=== PATIENT | male | born 2000 | race Caucasian/White ===

== ENCOUNTER 2019-01-08 19:43 | Emergency (ER) | payer MEDICAID ==
[~2019-01-08] VITALS: Ht 175.3 cm; Wt 102.1 kg
[2019-01-08 20:00] VITALS: BP 126/72
[2019-01-08 21:07] LABS: BASOPHILS % (AUTO) 0.3 % (0.0-2.0); EOSINOPHILS % (AUTO) 0.4 % (0.0-4.0); HEMATOCRIT 44.3 % (36-52); LYMPHOCYTES # (AUTO) 1.6 K/uL (2.0-11.5); LYMPHOCYTES % (AUTO) 19.1 % (20.5-51.1); MEAN CORPUSCULAR HEMOGLOBIN 29 pg (27-31); MEAN CORPUSCULAR HGB CONC 34 g/dL (33-37); MEAN CORPUSCULAR VOLUME 86.8 fL (80-94); MONOCYTES # (AUTO) 0.5 K/uL (0.8-1.0); MONOCYTES % (AUTO) 5.9 % (1.7-9.3); NEUTROPHILS # (AUTO) 6.2 K/uL (1.8-7.7); NEUTROPHILS % (AUTO) 74.3 % (42.2-75.2); PLATELET COUNT (AUTO) 257 K/uL (140-450); RED CELL DISTRIBUTION WIDTH 12.8 % (11.6-13.7); WHITE BLOOD COUNT (AUTO) 8.4 K/uL (4.5-11.0)
[2019-01-08 21:25] LABS: ANION GAP 10.3 (8-16); CARBON DIOXIDE 30.4 mmol/L (21-32); CREATININE 0.9 mg/dL (0.7-1.3); POTASSIUM 3.7 mmol/L (3.5-5.1)
[2019-01-08 22:32] VITALS: BP 127/59
== END 2019-01-08 22:32 | disposition home or self-care (01) ==
LOC: MED 19:43
DX: F41.1 Generalized anxiety disorder (principal)
CPT/HCPCS: 36415; 71045; 80048; 85025; 93005; 99284; Q0092

== ENCOUNTER 2021-12-09 22:29 | Emergency (ER) | payer MEDICAID, OTHER ==
[~2021-12-09] VITALS: Ht 175.3 cm; Wt 113.4 kg
[2021-12-09 22:33] VITALS: BP 116/88
--- NOTE | 2021-12-09 22:37 | NUR ---
PT AMBULATED TO THE BATHROOM FOR URINE COLLECTION
--- NOTE | 2021-12-09 22:39 | NUR ---
PT TO LOBBY
[2021-12-09] MEDS ORDERED: ALBUTEROL 0.083% 2.5 MG/3 ML NEBU INH ONE (23:40)
--- NOTE | 2021-12-09 23:50 | NUR ---
21 Y/O MALE BIBS FROM HOME, C/O WEAKNESS SINCE SUNDAY, N/V TODAY. DENIES MEDICATION. UNLABORED BREATHING, AMBULATORY, A/OX4. SKIN IS PINK/WARM/DRY. DENIES COUGH, FEVER, CP, OR DIARRHEA. PMH: DENIES NKA
[2021-12-10 00:04] VITALS: BP 120/86
--- NOTE | 2021-12-10 00:04 | NUR ---
Patient discharged with v/s stable. Written and verbal after care instructions given and explained. Patient verbalized understanding. Ambulatory with steady gait. All questions addressed prior to discharge. Advised to follow up with PMD. A/OX4, VSS, UNLABORED BREATHING, AMBULATORY, AND CALM DEMEANOR.
== END 2021-12-10 00:04 | disposition home or self-care (01) ==
LOC: MED 22:29
DX: F41.9 Anxiety disorder, unspecified (principal)
CPT/HCPCS: 94640; 94760; 99283; J7613

== ENCOUNTER 2022-01-30 22:37 | Emergency (ER) | payer OTHER ==
[~2022-01-30] VITALS: Ht 175.3 cm; Wt 112.9 kg
[2022-01-30 22:45] VITALS: BP 130/59
--- NOTE | 2022-01-30 22:49 | NUR ---
PT TO LOBBY WAITING FOR BED.
--- NOTE | 2022-01-31 00:47 | NUR ---
PT TO BED 12.
--- NOTE | 2022-01-31 01:00 | NUR ---
ASSUME CARE OF PT, REPORT GIVEN BY ALMA ROSA CALDWELL, PT C/O CP, PT IS VERY ANXIOUS, HX- ANXIETY. PT SEEN HERE RECENTLY AND DX-ANXIETY, PT WENT TO PCP AND PRESCRIBED MEDICATION FOR ANXIETY. PT PLACED ON EMULSION OPERATOR.
[2022-01-31 01:46] LABS: BASOPHILS # (AUTO) 0.1 K/uL (0.00-0.22); BASOPHILS % (AUTO) 0.8 % (0.0-2.0); EOSINOPHILS # (AUTO) 0.2 K/uL (0-0.4); EOSINOPHILS % (AUTO) 2.3 % (0.0-4.0); HEMATOCRIT 41.9 % (36-52); LYMPHOCYTES # (AUTO) 2.2 K/uL (2.0-11.5); LYMPHOCYTES % (AUTO) 22.6 % (20.5-51.1); MEAN CORPUSCULAR HEMOGLOBIN 30 pg (27-31); MEAN CORPUSCULAR HGB CONC 36 g/dL (33-37); MEAN CORPUSCULAR VOLUME 82.2 fL (80-94); MONOCYTES # (AUTO) 0.5 K/uL (0.8-1.0); MONOCYTES % (AUTO) 5.3 % (1.7-9.3); NEUTROPHILS # (AUTO) 6.8 K/uL (1.8-7.7); PLATELET COUNT (AUTO) 262 K/uL (140-450); RED CELL DISTRIBUTION WIDTH 13.1 % (11.6-13.7); WHITE BLOOD COUNT (AUTO) 9.9 K/uL (4.8-10.8)
[2022-01-31 02:04] LABS: ANION GAP 16.3 (8-16); CARBON DIOXIDE 21.9 mmol/L (21-32); CHLORIDE 104 mmol/L (98-107); CREATININE 0.8 mg/dL (0.6-1.3); GFR ARICAN-AMERICAN 155 mL/min (>90); GLUCOSE 116 mg/dL (74-106); POTASSIUM 3.2 mmol/L (3.5-5.1); SODIUM SERUM 139 mmol/L (136-145); UREA NITROGEN, BLOOD 11 mg/dL (7-18)
[2022-01-31 02:12] LABS: ALBUMIN 4.1 g/dL (3.4-5.0); ASPARTATE AMINOTRANSFERASE 29 U/L (15-37); TOTAL BILIRUBIN 0.5 mg/dL (0.0-1.0)
[2022-01-31] MEDS ORDERED: POTASSIUM CHLORIDE 20% 40 MEQ/15 ML UDC PO ONE (02:20)
[2022-01-31] MEDS ORDERED: LID5T TP (02:23)
[2022-01-31] MEDS ORDERED: ATA25 PO (02:26)
[2022-01-31] MEDS ORDERED: ALBU0.0912 IH (02:26)
--- NOTE | 2022-01-31 02:30 | NUR ---
PT RESTING IN BED, NO DISTRESS OBSERVED.
[2022-01-31 02:58] VITALS: BP 122/68
--- NOTE | 2022-01-31 03:00 | NUR ---
Patient discharged with v/s stable. Written and verbal after care instructions given and explained. Patient alert, oriented and verbalized understanding of instructions. Ambulatory with steady gait. All questions addressed prior to discharge. ID band removed. Patient advised to follow up with PMD. Rx SENT TO PHARMACY. Patient educated on indication of medication including possible reaction and side effects. Opportunity to ask questions provided and answered.
== END 2022-01-31 03:00 | disposition home or self-care (01) ==
LOC: MED 22:37
DX: R07.89 Other chest pain (principal); R06.02 Shortness of breath; E87.6 Hypokalemia; F41.9 Anxiety disorder, unspecified; Z79.899 Other long term (current) drug therapy
CPT/HCPCS: 36415; 71045; 80053; 84484; 85025; 93005; 99285

== ENCOUNTER 2022-02-07 15:49 | Emergency (ER) | payer OTHER ==
[~2022-02-07] VITALS: Ht 175.3 cm; Wt 112.0 kg
[~2022-02-07 15:49] MED LIST: ALBU0.0912 IH; ATA25 PO; LID5T TP
[2022-02-07 16:03] VITALS: BP 122/81
--- NOTE | 2022-02-07 16:10 | NUR ---
PT AMBULATED TO ROOM 7
--- NOTE | 2022-02-07 16:12 | NUR ---
21YO MALE PT C/O INTERMITTENT CHEST PAIN, LUQ AND RUQ ABDOMINAL PAIN X1WEEK. STATES CHEST "FEELS WEIRD, LIKE IM SCARED". ABDOMEN NON DISTENDED OR TENDER, ACTIVE X4. REPORTS NAUSEA THIS MORNING , DENIES AT THIS TIME. DENIES V/D, FEVER OR CHILLS. PT HAS HX OF ANXIETY , DENIES S/S. NOTES STOPPING REGULAR ANXIETY RX - UNABLE TO RECALL NAME AND ALSO STARTING NEW OTC MEDICATION "EL RENE AND MAGNESIUM POWDER" . PT AAOX4, RESPIRATIONS EVEN AND UNLABORED. ON TELETYPE CLERK. HX:ANXIETY NKA
--- NOTE | 2022-02-07 16:20 | NUR ---
MD BURRIS AT BEDSIDE FOR EVALUATION
--- NOTE | 2022-02-07 16:35 | NUR ---
PT TAKEN TO XRAY VIA WHEELCHAIR
--- NOTE | 2022-02-07 16:45 | NUR ---
PT BROUGHT BACK FROM XRAY AT BEDSIDE
--- NOTE | 2022-02-07 16:45 | NUR ---
Note undone in EDM - 02/07/22 at 1854 by PHSEP Patient discharged with v/s stable. Written and verbal after care instructions FOR NON SPECIFIC CHEST PAIN, CONSTIPATION, PANIC ATTACK AND ABDOMINAL PAIN given and explained. Patient alert, oriented and verbalized understanding of instructions. Ambulatory with steady gait. All questions addressed prior to discharge. ID band removed. Patient advised to follow up with PMD. Rx of CLEARLAX given. . Opportunity to ask questions provided and answered.
--- NOTE | 2022-02-07 17:03 | NUR ---
LAB AT BEDSIDE
[2022-02-07] MEDS ORDERED: LORazepam 1 MG TAB PO ONE (17:20)
[2022-02-07 17:25] LABS: BASOPHILS % (AUTO) 0.5 % (0.0-2.0); EOSINOPHILS # (AUTO) 0.1 K/uL (0-0.4); EOSINOPHILS % (AUTO) 1.4 % (0.0-4.0); HEMATOCRIT 41.3 % (36-52); HEMOGLOBIN 14.9 g/dL (12.0-18.0); LYMPHOCYTES # (AUTO) 1.5 K/uL (2.0-11.5); LYMPHOCYTES % (AUTO) 14.9 % (20.5-51.1); MEAN CORPUSCULAR HEMOGLOBIN 30 pg (27-31); MEAN CORPUSCULAR HGB CONC 36 g/dL (33-37); MONOCYTES # (AUTO) 0.5 K/uL (0.8-1.0); MONOCYTES % (AUTO) 4.9 % (1.7-9.3); NEUTROPHILS # (AUTO) 7.6 K/uL (1.8-7.7); NEUTROPHILS % (AUTO) 78.3 % (42.2-75.2); PLATELET COUNT (AUTO) 282 K/uL (140-450); RED BLOOD CELL COUNT(AUTO) 4.98 MIL/uL (4.20-6.10); WHITE BLOOD COUNT (AUTO) 9.7 K/uL (4.8-10.8)
[2022-02-07 18:09] LABS: ALBUMIN 4.1 g/dL (3.4-5.0); ANION GAP 15.9 (8-16); CARBON DIOXIDE 23.6 mmol/L (21-32); CHLORIDE 104 mmol/L (98-107); CREATININE 0.9 mg/dL (0.6-1.3); GFR ARICAN-AMERICAN 136 mL/min (>90); GLUCOSE 99 mg/dL (74-106); POTASSIUM 3.5 mmol/L (3.5-5.1); SODIUM SERUM 140 mmol/L (136-145); TOTAL BILIRUBIN 0.5 mg/dL (0.0-1.0); UREA NITROGEN, BLOOD 14 mg/dL (7-18)
[2022-02-07 18:19] LABS: ASPARTATE AMINOTRANSFERASE 25 U/L (15-37)
[2022-02-07] MEDS ORDERED: POLY17PD72 PO ×2 (18:21→18:48)
[2022-02-07 18:45] VITALS: BP 128/79
--- NOTE | 2022-02-07 18:45 | NUR ---
Patient discharged with v/s stable. Written and verbal after care instructions FOR NON SPECIFIC CHEST PAIN, CONSTIPATION, PANIC ATTACK AND ABDOMINAL PAIN given and explained. Patient alert, oriented and verbalized understanding of instructions. Ambulatory with steady gait. All questions addressed prior to discharge. ID band removed. Patient advised to follow up with PMD. Rx of CLEARLAX given. . Opportunity to ask questions provided and answered.
== END 2022-02-07 18:45 | disposition home or self-care (01) ==
LOC: MED 15:49
DX: R07.89 Other chest pain (principal); R10.12 Left upper quadrant pain
CPT/HCPCS: 36415; 71045; 74018; 80053; 84484; 85025; 93005; 99285

== ENCOUNTER 2022-03-09 02:59 | Emergency (ER) | payer OTHER ==
[~2022-03-09] VITALS: Ht 175.3 cm; Wt 108.9 kg
[~2022-03-09 02:59] MED LIST changes: +POLY17PD72 PO
[2022-03-09 03:04] VITALS: BP 130/92
--- NOTE | 2022-03-09 03:34 | NUR ---
21/M BIB SELF C/C DIFFICULTY BREATHING XTODAY. PATIENT WAS SEEN AND D/C FROM [facility] FOR DIFFICULTY BREATHING X4HRS AGO. STATED "I FEEL LIKE I HAVE BLOOD IN MY THROAT. I FEEL LIKE MY LUNGS ARE REALLY SWOLLEN". PATIENT STATED THAT HE WAS TOLD THAT LUNGS WERE SWOLLEN. STATED THAT HE HAS A HX OF ANXIETY BUT THIS DOESNT FEEL LIKE ANXIETY. PATIENT PLACED ON COAT TAILOR. AAOX4 AND APPEARS TO BE VERY ANXIOUS. PATIENT BED LOW AND LOCKED. SIDE RAIL UP FOR SAFETY X1. ALL NEEDS MET. PATIENT SAT O2 98% ROOM AIR. RR EVEN AND UNLABORED. NO ACCESS. MUSCLE USE. PMHX ANXIETY NKA
[2022-03-09] MEDS ORDERED: ALBUTEROL SULFATE/IPRATROPIU 3 ML SOL IH ONE (04:20)
--- NOTE | 2022-03-09 04:31 | NUR ---
RT AT BEDSIDE
[2022-03-09] MEDS ORDERED: HYDR25CA1 PO (05:09)
[2022-03-09 05:23] VITALS: BP 126/92
--- NOTE | 2022-03-09 05:23 | NUR ---
Patient discharged with v/s stable. Written and verbal after care instructions given and explained. Patient alert, oriented and verbalized understanding of instructions. Ambulatory with steady gait. All questions addressed prior to discharge. ID band removed. Patient advised to follow up with PMD. Rx of HYDROXYZINE given. Patient educated on indication of medication including possible reaction and side effects. Opportunity to ask questions provided and answered.
== END 2022-03-09 05:23 | disposition home or self-care (01) ==
LOC: MED 02:59
DX: I10 Essential (primary) hypertension (principal); F41.9 Anxiety disorder, unspecified; Z79.899 Other long term (current) drug therapy
CPT/HCPCS: 71045; 94640; 99283; Q0092

== ENCOUNTER 2022-03-25 22:48 | Emergency (ER) | payer OTHER ==
[~2022-03-25] VITALS: Ht 175.3 cm; Wt 110.2 kg
[~2022-03-25 22:48] MED LIST changes: +HYDR25CA1 PO
[2022-03-25 23:23] VITALS: BP 127/87
--- NOTE | 2022-03-25 23:26 | NUR ---
TO LOBBY A/W BED AMBULATORY
[2022-03-26 00:27] LABS: BASOPHILS % (AUTO) 0.6 % (0.0-2.0); EOSINOPHILS # (AUTO) 0.3 K/uL (0-0.4); EOSINOPHILS % (AUTO) 3.4 % (0.0-4.0); HEMATOCRIT 44.4 % (36-52); HEMOGLOBIN 15.6 g/dL (12.0-18.0); LYMPHOCYTES # (AUTO) 2.7 K/uL (2.0-11.5); LYMPHOCYTES % (AUTO) 35.2 % (20.5-51.1); MEAN CORPUSCULAR HEMOGLOBIN 30 pg (27-31); MEAN CORPUSCULAR HGB CONC 35 g/dL (33-37); MEAN CORPUSCULAR VOLUME 84.2 fL (80-94); MONOCYTES # (AUTO) 0.6 K/uL (0.8-1.0); MONOCYTES % (AUTO) 7.5 % (1.7-9.3); NEUTROPHILS # (AUTO) 4.2 K/uL (1.8-7.7); NEUTROPHILS % (AUTO) 53.3 % (42.2-75.2); PLATELET COUNT (AUTO) 237 K/uL (140-450); RED BLOOD CELL COUNT(AUTO) 5.28 MIL/uL (4.20-6.10); RED CELL DISTRIBUTION WIDTH 13.1 % (11.6-13.7); WHITE BLOOD COUNT (AUTO) 7.8 K/uL (4.8-10.8)
[2022-03-26 00:30] LABS: ALBUMIN 4.3 g/dL (3.4-5.0); ANION GAP 11.7 (8-16); ASPARTATE AMINOTRANSFERASE 29 U/L (15-37); CARBON DIOXIDE 27.1 mmol/L (21-32); CHLORIDE 105 mmol/L (98-107); CREATININE 0.9 mg/dL (0.6-1.3); GFR ARICAN-AMERICAN 136 mL/min (>90); GLUCOSE 96 mg/dL (74-106); POTASSIUM 3.8 mmol/L (3.5-5.1); SODIUM SERUM 140 mmol/L (136-145); TOTAL BILIRUBIN 0.6 mg/dL (0.0-1.0); UREA NITROGEN, BLOOD 15 mg/dL (7-18)
[2022-03-26] MEDS ORDERED: SUCR1TAB35 PO (01:06)
[2022-03-26] MEDS ORDERED: FAMO-90 PO (01:06)
[2022-03-26] MEDS ORDERED: FLONAS NS (01:06)
[2022-03-26] MEDS ORDERED: CETI10SG1 PO (01:06)
[2022-03-26 01:24] VITALS: BP 127/87
[2022-03-26] MEDS ORDERED: PSYL0.4C2 PO (01:24)
[2022-03-26] MEDS ORDERED: MAGN296S2 PO (01:24)
--- NOTE | 2022-03-26 01:24 | NUR ---
Patient discharged with v/s stable. Written and verbal after care instructions given and explained. Patient alert, oriented and verbalized understanding of instructions. Ambulatory with steady gait. All questions addressed prior to discharge. ID band removed. Patient advised to follow up with PMD. Rx of zyrtec, pepcid, flonase, carafate given. Patient educated on indication of medication including possible reaction and side effects. Opportunity to ask questions provided and answered.
== END 2022-03-26 01:24 | disposition home or self-care (01) ==
LOC: MED 22:48
DX: R07.9 Chest pain, unspecified (principal); K59.00 Constipation, unspecified
CPT/HCPCS: 36415; 71045; 80053; 84484; 85025; 93005; 99285

== ENCOUNTER 2022-03-27 13:49 | Emergency (ER) | payer OTHER ==
[~2022-03-27] VITALS: Ht 180.3 cm; Wt 90.7 kg
[~2022-03-27 13:49] MED LIST changes: +CETI10SG1 PO; +FAMO-90 PO; +FLONAS NS; +MAGN296S2 PO; +PSYL0.4C2 PO; +SUCR1TAB35 PO
[2022-03-27 13:56] VITALS: BP 124/80
[2022-03-27 15:24] LABS: APPEARANCE,URINE CLEAR (CLEAR); BILIRUBIN,URINE NEGATIVE (NEGATIVE); BLOOD, URINE NEGATIVE (NEGATIVE); COLOR,URINE YELLOW (YELLOW); LEUKOCYTE ESTERASE ,URINE NEGATIVE (NEGATIVE); NITRITE, URINE NEGATIVE (NEGATIVE); PH,URINE 7.5 (5.0-9.0); UGLUCOSE NEGATIVE (NEGATIVE)
[2022-03-27 17:03] VITALS: BP 124/80
--- NOTE | 2022-03-27 17:03 | NUR ---
Patient discharged with v/s stable. Written and verbal after care instructions given and explained. Patient verbalized understanding. Ambulatory with steady gait. All questions addressed prior to discharge. Advised to follow up with PMD.
== END 2022-03-27 17:03 | disposition home or self-care (01) ==
LOC: MED 13:49
DX: R30.0 Dysuria (principal); R07.81 Pleurodynia
CPT/HCPCS: 81003; 87491; 99283

== ENCOUNTER 2022-05-11 18:06 | Emergency (ER) | payer OTHER ==
[~2022-05-11] VITALS: Ht 175.3 cm; Wt 108.9 kg
[2022-05-11 18:45] VITALS: BP 109/61
--- NOTE | 2022-05-11 18:56 | NUR ---
PT AMB TO BED 6.
--- NOTE | 2022-05-11 19:18 | NUR ---
Assumed care of patient at change of shift. introduced self to patient. Patient c/o feeling of choking on phlegm and sob ongoing for several days. Patient feels as if his sx are related to anxiety. Now c/o chest and back pain rated 6/10. Patient in no acute respiratory distress. Bed to low position sr up. continue to monitor. Awaiting MD oshea.
--- NOTE | 2022-05-11 19:18 | NUR ---
Report given to PAULETTE Mcintyre for transfer of care.
--- NOTE | 2022-05-11 20:34 | NUR ---
MD Fishman at bedside
[2022-05-11] MEDS ORDERED: DIAZ2TAB6 PO (21:00)
[2022-05-11 21:22] VITALS: BP 100/60
--- NOTE | 2022-05-11 21:22 | NUR ---
Patient discharged with v/s stable. Written and verbal after care instructions given and explained. Patient alert, oriented and verbalized understanding of instructions. Ambulatory with steady gait. All questions addressed prior to discharge. ID band removed. Patient advised to follow up with PMD. Rx of valium given. Patient educated on indication of medication including possible reaction and side effects. Opportunity to ask questions provided and answered.
== END 2022-05-11 21:22 | disposition home or self-care (01) ==
LOC: MED 18:06
DX: F41.9 Anxiety disorder, unspecified (principal); R06.00 Dyspnea, unspecified; R13.10 Dysphagia, unspecified; Z79.899 Other long term (current) drug therapy
CPT/HCPCS: 99283

== ENCOUNTER 2023-07-24 15:54 | Emergency (ER) | payer OTHER ==
[~2023-07-24] VITALS: Ht 175.3 cm; Wt 106.6 kg
[~2023-07-24 15:54] MED LIST changes: +DIAZ2TAB6 PO; -MAGN296S2 PO; +MAGN296S70 PO
[2023-07-24 16:20] VITALS: BP 133/78; PULSE 107; RESP 20; TEMP 100.6; O2SAT 96
[2023-07-24] MEDS: ACETAMINOPHEN 325 MG TAB PO ONE (16:38)
[2023-07-24] MEDS ORDERED: ALBU0.0912 IH (19:02)
[2023-07-24] MEDS ORDERED: IBUP-2213 PO (19:02)
[2023-07-24 19:08] VITALS: TEMP 98.8
[2023-07-24 19:11] LABS: FLU A ANTIGEN negative (NEGATIVE); FLU B ANTIGEN NEGATIVE (NEGATIVE)
== END 2023-07-24 19:08 | disposition home or self-care (01) ==
LOC: MED 15:54
DX: J06.9 Acute upper respiratory infection, unspecified (principal); Z20.822 Contact with and (suspected) exposure to COVID-19; F41.9 Anxiety disorder, unspecified; Z79.899 Other long term (current) drug therapy
CPT/HCPCS: 99283

== ENCOUNTER 2023-09-02 04:18 | Emergency (ER) | payer OTHER ==
[~2023-09-02] VITALS: Ht 175.3 cm; Wt 106.6 kg
[~2023-09-02 04:18] MED LIST changes: +IBUP-2213 PO; +SUCR-3 PO; -SUCR1TAB35 PO
[2023-09-02 04:37] VITALS: BP 122/67; PULSE 82; RESP 16; TEMP 98; O2SAT 100
[2023-09-02] MEDS ORDERED: CETI10CA6 PO (07:46)
[2023-09-02] MEDS ORDERED: IBUP-2213 PO (07:46)
[2023-09-02] MEDS ORDERED: BENZ200C4 PO (07:46)
== END 2023-09-02 07:55 | disposition home or self-care (01) ==
LOC: MED 04:18
DX: J06.9 Acute upper respiratory infection, unspecified (principal); R11.10 Vomiting, unspecified; R10.10 Upper abdominal pain, unspecified; M54.50 Low back pain, unspecified; Z79.899 Other long term (current) drug therapy
CPT/HCPCS: 71045; 99283